=== PATIENT | male | born 1980 | race Caucasian/White ===

== ENCOUNTER 2020-05-17 16:06 | Emergency (ER) | payer OTHER ==
[~2020-05-17] VITALS: Ht 182.9 cm; Wt 98.1 kg
--- NOTE | 2020-05-17 18:03 | REPVR ---
PROCEDURE INFORMATION: Exam: CT Head Without Contrast Exam date and time: 05/17/2020 5:52 PM Age: 40 years old Clinical indication: Other: Tingling in neck/face TECHNIQUE: Imaging protocol: Computed tomography of the head without contrast. Radiation optimization: All CT scans at this facility use at least one of these dose optimization techniques: automated exposure control; mA and/or kV adjustment per patient size (includes targeted exams where dose is matched to clinical indication); or iterative reconstruction. COMPARISON: No relevant prior studies available. FINDINGS: Brain: Normal. No hemorrhage. Unremarkable white matter. No mass effect. Cerebral ventricles: No ventriculomegaly. Bones/joints: Unremarkable. No acute fracture. Paranasal sinuses: Visualized sinuses are unremarkable. No fluid levels. Mastoid air cells: Visualized mastoid air cells are well aerated. Soft tissues: Unremarkable. IMPRESSION: No acute intracranial abnormality. Electronically signed by: Jan Garcia On 05/17/2020 18:03:23 PM
[2020-05-17 18:18] LABS: BASO % 0.3 % (0.0-1.0); EOS % 0.1 % (0.0-3.0); HEMATOCRIT 48.1 % (42.0-52.0); LYMPH # 1.8 10^3/uL (1.5-5.0); LYMPH % 26.8 % (24.0-44.0); MEAN CORPUSCULAR HEMOGLOBIN 32.3 pg (27.0-33.0); MEAN CORPUSCULAR HGB CONC 33.3 g/dl (32.0-36.5); MEAN CORPUSCULAR VOLUME 97.2 fl (80.0-96.0); MONO # 0.5 10^3/uL (0.0-0.8); MONO % 6.7 % (0.0-5.0); NEUTROPHILS # 4.5 10^3/uL (1.5-8.5); NEUTROPHILS % 65.8 % (36.0-66.0); PLATELET COUNT, AUTOMATED 194 10^3/uL (150-450); RED BLOOD COUNT 4.95 10^6/uL (4.30-6.10); WHITE BLOOD COUNT 6.8 10^3/uL (4.0-10.0)
--- NOTE | 2020-05-17 18:23 | REP ---
INDICATION: CHEST PAIN. COMPARISON: No comparisons. TECHNIQUE: Two views.. FINDINGS: The lungs are well inflated and free of infiltrate. The pleural angles are sharp. The heart size is normal. Pulmonary vasculature is not increased. No significant bony abnormality is seen. IMPRESSION: Negative chest x-ray. <Electronically signed by Davey Jennings > 05/17/20 [id number]
[2020-05-17 18:54] LABS: ALBUMIN 4.3 GM/DL (3.2-5.2); ALT/SGPT 45 U/L (12-78); BILIRUBIN,DIRECT 0.2 MG/DL (0.0-0.2); BILIRUBIN,TOTAL 1.2 MG/DL (0.2-1.0); CK-MB VALUE MASS < 1.0 NG/ML (<3.6); CPK CREATINE PHOSPHOKINASE 90 U/L (39-308); FREE T4 0.97 NG/DL (0.76-1.46); LIPASE 62 U/L (73-393); MB/CK RELATIVE INDEX 1.11 (< OR =4); NT-PRO BNP 22 PG/ML (<125); TOTAL PROTEIN 8.4 GM/DL (6.4-8.2)
[2020-05-17 22:19] VITALS: BP 128/84
--- NOTE | 2020-05-18 09:29 | ECGEPIP ---
[facility] - ED Test Date: 2020-05-17 Pat Name: ELBERT CHANDRA Department: Room: - Gender: Male Net Maker: : 1980 Requested By: Cornel Du Order Number: [id number] Reading MD: Amy Franks Measurements Intervals [place] Rate: 66 P: 13 DC: 181 QRS: 4 QRSD: 105 T: 18 QT: 382 QTc: 402 Interpretive Statements SINUS RHYTHM POSSIBLE INFERIOR MYOCARDIAL INFARCTION, OF INDETERMINATE AGE No prior Electronically Signed on 05-18-2020 9:29:16 EDT by Amy Franks
== END 2020-05-17 22:28 | disposition home or self-care (01) ==
LOC: M ED 16:06
DX: R07.9 Chest pain, unspecified (principal); E78.5 Hyperlipidemia, unspecified; Z87.891 Personal history of nicotine dependence; Z91.013 Allergy to seafood

== ENCOUNTER → 2020-12-22 | Outpatient (CLI) | payer OTHER ==
--- NOTE | 2020-12-22 15:11 | REP ---
INDICATION: PAIN. COMPARISON: None. TECHNIQUE: Three views of the left shoulder were performed. FINDINGS: The acromioclavicular and glenohumeral relationships are within normal limits. There is no acute fracture or destructive osseous lesion. IMPRESSION: Within normal limits <Electronically signed by Fitz Marie > 12/22/20 [id number]
== END ==
LOC: M WUC 14:53
PROVIDERS: ATTEND Physician Assistant Medical
DX: M25.512 Pain in left shoulder (principal)

== ENCOUNTER → 2021-01-26 | Outpatient (CLI) | payer OTHER ==
--- NOTE | 2021-01-26 12:48 | REP ---
INDICATION: CHEST PAIN COMPARISON: 05/17/2020 TECHNIQUE: PA and lateral. FINDINGS: The mediastinum and cardiac silhouette are normal. The lung posadas are clear and without acute consolidation, effusion, or pneumothorax. The skeletal structures are intact and normal. IMPRESSION: No acute cardiopulmonary process. <Electronically signed by Robbi Irwin > 01/26/21 [id number]
== END ==
LOC: M WUC 12:00
PROVIDERS: ATTEND Physician Assistant Medical
DX: R07.9 Chest pain, unspecified (principal)

== ENCOUNTER → 2021-03-09 | Outpatient (REF) | payer OTHER | LOC: M SMT 12:59 | PROVIDERS: ATTEND Urology | DX: Z30.2 Encounter for sterilization (principal) ==

== ENCOUNTER → 2021-03-18 | Outpatient (CLI) | payer OTHER | LOC: M LABSMTC 11:23 | PROVIDERS: ATTEND Anesthesiology | DX: Z01.812 Encounter for preprocedural laboratory examination (principal); Z11.52 Encounter for screening for COVID-19 ==

== ENCOUNTER 2021-03-23 07:42 | Day surgery (SDC) | payer OTHER ==
[~2021-03-23] VITALS: Ht 182.9 cm; Wt 97.1 kg
[~2021-03-23 07:42] MED LIST: LIDOCAINE 2% 100MG/5ML SDV (FOR ANES.) As Ordered ONE; NS 1,000 ML IV ONE; propofoL 200 MG/20 ML VIAL As Ordered ONE
[2021-03-23] MEDS ORDERED: propofoL 200 MG/20 ML VIAL As Ordered ONE (08:49)
--- NOTE | 2021-03-23 09:06 | ROOR ---
Patient Name: Poncho Ly Procedure Date: 03/23/2021 8:42 AM Date of : 1980 Age: 40 Room: [facility] Gender: Male Note Status: Finalized Procedure: Upper GI endoscopy Indications: Suspected gastro-esophageal reflux disease Providers: DO Vincent Harris MD: EVIE Rodriguez Requesting Provider: Medicines: Propofol per Anesthesia Complications: No immediate complications. Procedure: Pre-Anesthesia Assessment: - Prior to the procedure, a History and Physical was performed, and patient medications and allergies were reviewed. The patient is competent. The risks and benefits of the procedure and the sedation options and risks were discussed with the patient. All questions were answered and informed consent was obtained. Patient identification and proposed procedure were verified by the physician, the nurse, the pipe line walker and the health information systems technician in the endoscopy suite. Mental Status Examination: alert and oriented. Airway Examination: normal oropharyngeal airway and neck mobility. Respiratory Examination: clear to auscultation. CV Examination: normal. Prophylactic Antibiotics: The patient does not require prophylactic antibiotics. Prior Anticoagulants: The patient has taken no previous anticoagulant or antiplatelet agents. ASA Grade Assessment: II - A patient with mild systemic disease. After reviewing the risks and benefits, the patient was deemed in satisfactory condition to undergo the procedure. The anesthesia plan was to use monitored anesthesia care (MAC). Immediately prior to administration of medications, the patient was re-assessed for adequacy to receive sedatives. The heart rate, respiratory rate, oxygen saturations, blood pressure, adequacy of pulmonary ventilation, and response to care were monitored throughout the procedure. The physical status of the patient was re-assessed after the procedure. The Endoscope was introduced through the mouth, and advanced to the second part of duodenum. The upper GI endoscopy was accomplished without difficulty. The patient tolerated the procedure well. Findings: Localized mild inflammation characterized by erythema, friability, linear erosions and target ulcerations was found in the prepyloric region of the stomach. Biopsies were taken with a cold forceps for Helicobacter pylori testing. Estimated blood loss was minimal. Impression: - Gastritis. Biopsied. Recommendation: - Patient has a contact number available for emergencies. The signs and symptoms of potential delayed complications were discussed with the patient. Return to normal activities tomorrow. Written discharge instructions were provided to the patient. - Return to physician obstetric assistant at appointment to be scheduled. Procedure Code(s): --- Professional --- 16273, Esophagogastroduodenoscopy, flexible, transoral; with biopsy, single or multiple Diagnosis Code(s): --- Professional --- K29.70, Gastritis, unspecified, without bleeding CPT copyright 2019 [employer]. All rights reserved. The codes documented in this report are preliminary and upon explosive man review may be revised to meet current compliance requirements. John Rangel DO 03/23/2021 9:05:48 AM Electronically signed by John Rangel DO Number of Addenda: 0 Note Initiated On: 03/23/2021 8:42 AM Estimated Blood Loss: Estimated blood loss was minimal.
--- NOTE | 2021-03-23 09:08 | ROOR ---
Patient Name: Poncho Ly Procedure Date: 03/23/2021 8:43 AM Date of : 1980 Age: 40 Room: [facility] Gender: Male Note Status: Finalized Procedure: Colonoscopy Indications: Screening for colorectal malignant neoplasm Providers: DO Vincent Harris MD: EVIE Rodriguez Requesting Provider: Medicines: Propofol per Anesthesia Complications: No immediate complications. Procedure: Pre-Anesthesia Assessment: - Prior to the procedure, a History and Physical was performed, and patient medications and allergies were reviewed. The patient is competent. The risks and benefits of the procedure and the sedation options and risks were discussed with the patient. All questions were answered and informed consent was obtained. Patient identification and proposed procedure were verified by the physician, the nurse, the lug breaker and wire puller and the property technician in the endoscopy suite. Mental Status Examination: alert and oriented. Airway Examination: normal oropharyngeal airway and neck mobility. Respiratory Examination: clear to auscultation. CV Examination: normal. Prophylactic Antibiotics: The patient does not require prophylactic antibiotics. Prior Anticoagulants: The patient has taken no previous anticoagulant or antiplatelet agents. ASA Grade Assessment: II - A patient with mild systemic disease. After reviewing the risks and benefits, the patient was deemed in satisfactory condition to undergo the procedure. The anesthesia plan was to use monitored anesthesia care (MAC). Immediately prior to administration of medications, the patient was re-assessed for adequacy to receive sedatives. The heart rate, respiratory rate, oxygen saturations, blood pressure, adequacy of pulmonary ventilation, and response to care were monitored throughout the procedure. The physical status of the patient was re-assessed after the procedure. The Colonoscope was introduced through the anus and advanced to the cecum, identified by appendiceal orifice and ileocecal valve. The colonoscopy was performed without difficulty. The patient tolerated the procedure well. Findings: The colon (entire examined portion) appeared normal. Impression: - The entire examined colon is normal. - No specimens collected. Recommendation: - Patient has a contact number available for emergencies. The signs and symptoms of potential delayed complications were discussed with the patient. Return to normal activities tomorrow. Written discharge instructions were provided to the patient. - Repeat colonoscopy in 5-10 years for screening purposes. - Return to my office PRN. Procedure Code(s): --- Professional --- G0121, Colorectal cancer screening; colonoscopy on individual not meeting criteria for high risk Diagnosis Code(s): --- Professional --- Z12.11, Encounter for screening for malignant neoplasm of colon CPT copyright 2019 [employer]. All rights reserved. The codes documented in this report are preliminary and upon outside sales manager review may be revised to meet current compliance requirements. John Rangel DO 03/23/2021 9:07:47 AM Electronically signed by John Rangel DO Number of Addenda: 0 Note Initiated On: 03/23/2021 8:43 AM Estimated Blood Loss: Estimated blood loss: none.
[2021-03-23 09:43] VITALS: BP 129/79
== END 2021-03-23 09:45 | disposition home or self-care (01) ==
LOC: M OPP 07:42
PROVIDERS: ATTEND Surgery
DX: Z12.11 Encounter for screening for malignant neoplasm of colon (principal); K29.70 Gastritis, unspecified, without bleeding; K21.9 Gastro-esophageal reflux disease without esophagitis; R10.9 Unspecified abdominal pain; F41.9 Anxiety disorder, unspecified; G43.909 Migraine, unspecified, not intractable, without status migrainosus; Z87.891 Personal history of nicotine dependence; Z91.013 Allergy to seafood; Z82.49 Family history of ischemic heart disease and other diseases of the circulatory system

== ENCOUNTER → 2021-06-10 | Outpatient (REF) | payer OTHER ==
[2021-06-10 09:55] LABS: SEMEN APPEARANCE OPAQUE (OPAQUE); SEMEN VISCOSITY LIQUID (LIQUID); SEMEN VOLUME 2.1 ml (2.0-5.0); WBC CONCENTRATION >1 M/ml (<=1 M/ml)
== END ==
LOC: M SMT 09:28
PROVIDERS: ATTEND Urology
DX: Z30.2 Encounter for sterilization (principal)

== ENCOUNTER 2023-03-19 15:30 | Inpatient (IN) | payer OTHER, SELFPAY ==
[~2023-03-19] VITALS: Ht 182.9 cm; Wt 80.0 kg
[2023-03-19] MEDS ORDERED: BACITRACIN OINTMENT 30GM TUBE TOP ONE (16:05)
[2023-03-19] MEDS ORDERED: ASPIRIN 81MG CHEW TABLET PO ONE (16:50)
[2023-03-19 17:04] LABS: BASO % 0.7 % (0.0-1.0); EOS % 0.3 % (0.0-3.0); HEMATOCRIT 43.2 % (42.0-52.0); LYMPH # 0.4 10^3/uL (1.5-5.0); MEAN CORPUSCULAR HEMOGLOBIN 34.8 pg (27.0-33.0); MEAN CORPUSCULAR HGB CONC 34.7 g/dl (32.0-36.5); MEAN CORPUSCULAR VOLUME 100.2 fl (80.0-96.0); MONO # 0.2 10^3/uL (0.0-0.8); MONO % 8.2 % (2.0-8.0); NEUTROPHILS # 2.2 10^3/uL (1.5-8.5); NEUTROPHILS % 75.5 % (36.0-66.0); RED BLOOD COUNT 4.31 10^6/uL (4.30-6.10); WHITE BLOOD COUNT 2.9 10^3/uL (4.0-10.0)
[2023-03-19] MEDS: NS 1,000 ML IV SCH (17:04)
[2023-03-19 17:24] LABS: ACETAMINOPHEN LEVEL < 2.0 UG/ML (10.0-20.0); CK-MB VALUE MASS 1.9 NG/ML (<3.6); ETHYL ALCOHOL (ETHANOL) 0.008 % (0.000-0.010)
[2023-03-19 17:25] LABS: ALBUMIN 3.9 G/DL (3.2-5.2); ALKALINE PHOSPHATASE 66 U/L (46-116); ALT/SGPT 91 U/L (7.0-40); AST/SGOT 161 U/L (<34); BILIRUBIN,DIRECT 0.7 MG/DL (<0.4); BILIRUBIN,TOTAL 1.8 MG/DL (0.3-1.2); BLOOD UREA NITROGEN 9 MG/DL (9-23); CALCIUM LEVEL 9.9 MG/DL (8.5-10.1); CARBON DIOXIDE LEVEL 24 MMOL/L (20-31); CHLORIDE LEVEL 101 MMOL/L (98-107); CPK CREATINE PHOSPHOKINASE 149 U/L (46-171); CREATININE FOR GFR 0.78 MG/DL (0.70-1.30); GLOMERULAR FILTRATION RATE > 60.0 (>60); GLUCOSE, FASTING 105 MG/DL (60-100); MB/CK RELATIVE INDEX 1.27 (< OR =4); POTASSIUM SERUM 3.9 MMOL/L (3.5-5.1); SALICYLATE LEVEL < 3.0 MG/DL (<30); SODIUM LEVEL 136 MMOL/L (136-145); TOTAL PROTEIN 7.4 G/DL (5.7-8.2)
[2023-03-19 17:27] LABS: THYROID STIMULATING HORMONE 1.553 uIU/ML (0.55-4.78)
[2023-03-19 17:33] LABS: PLATELET COUNT, AUTOMATED 46 10^3/uL (150-450)
[2023-03-19 18:01] LABS: AMPHETAMINES LEVEL URINE NEGATIVE (NEGATIVE)
[2023-03-19 18:02] LABS: BARBITURATES URINE NEGATIVE (NEGATIVE); BENZODIAZEPINES URINE NEGATIVE (NEGATIVE); CANNABINOIDS URINE NEGATIVE (NEGATIVE); COCAINE METABOLITE URINE NEGATIVE (NEGATIVE); METHADONE URINE NEGATIVE (NEGATIVE); OPIATES URINE NEGATIVE (NEGATIVE); PHENCYCLIDINE URINE NEGATIVE (NEGATIVE)
[2023-03-19] MEDS ORDERED: ONDANSETRON 4MG 2ML VIAL IV ONE (18:05)
[2023-03-19] MEDS ORDERED: MORPHINE 2 MG/ML 1ML VIAL IV ONE (18:05)
[2023-03-19 18:55] LABS: INR 1.04; PROTHROMBIN TIME 13.3 SECONDS (12.5-14.5)
[2023-03-19] MEDS ORDERED: MED REC IN PROGRESS XX SCH (18:55)
[2023-03-19 18:56] LABS: CK-MB VALUE MASS 2.3 NG/ML (<3.6)
[2023-03-19] MEDS ORDERED: EXCETAB32 PO (18:56)
[2023-03-19] MEDS ORDERED: ATOR1TAB19 PO (18:56)
[2023-03-19 18:57] LABS: MB/CK RELATIVE INDEX 1.33 (< OR =4)
[2023-03-19] MEDS ORDERED: HOME MED LIST COMPLETE! XX SCH (19:05)
[2023-03-19 19:06] LABS: MONO SCRN NEGATIVE (NEGATIVE)
[2023-03-19 19:36] LABS: HEPATITIS B CORE ANTIBODY IGM NEGATIVE (NEGATIVE); HEPATITIS C VIRUS ABY INDEX 0.14 INDEX (<0.8)
[2023-03-19 19:39] LABS: RSV AMPLIFICATION NEGATIVE (NEGATIVE)
[2023-03-19 20:40] LABS: CK-MB VALUE MASS 3.9 NG/ML (<3.6)
[2023-03-19 20:43] LABS: MB/CK RELATIVE INDEX 1.65 (< OR =4)
[2023-03-19] MEDS ORDERED: LORazepam 2 MG/ML 1ML VIAL IV STA (21:18)
[2023-03-19] MEDS ORDERED: NS 1,000 ML IV ONE (21:20)
[2023-03-19] MEDS ORDERED: THIAMINE 200MG 2ML VIAL IM ONE (22:10)
[2023-03-19] MEDS ORDERED: ACETAMINOPHEN TAB 650MG DOSE (2X325MG) PO PRN (22:10)
[2023-03-19 22:45] VITALS: BP 119/76; TEMP 98.2; O2SAT 99
[2023-03-19 23:19] VITALS: BP 119/76
[2023-03-20] VITALS (43 sets, daily range): BP systolic 85–148; BP diastolic 56–88; TEMP 97.5–99.1; O2SAT 86–100
[2023-03-20] MEDS ORDERED: CEPACOL LOZENGE PO PRN (00:15)
[2023-03-20] MEDS: NS 1,000 ML IV SCH ×2 (02:05→12:05)
[2023-03-20 06:22] LABS: MEAN CORPUSCULAR HEMOGLOBIN 34.7 pg (27.0-33.0); MEAN CORPUSCULAR HGB CONC 33.5 g/dl (32.0-36.5); MEAN CORPUSCULAR VOLUME 103.6 fl (80.0-96.0); RED BLOOD COUNT 3.57 10^6/uL (4.30-6.10); WHITE BLOOD COUNT 3.6 10^3/uL (4.0-10.0)
[2023-03-20 06:23] LABS: PLATELET COUNT, AUTOMATED 39 10^3/uL (150-450)
[2023-03-20 06:24] LABS: HEMOGLOBIN 12.4 g/dl (13.5-17.5)
[2023-03-20 06:51] LABS: ALBUMIN 3.1 G/DL (3.2-5.2); ALKALINE PHOSPHATASE 53 U/L (46-116); ALT/SGPT 65 U/L (7.0-40); AST/SGOT 114 U/L (<34); BILIRUBIN,TOTAL 1.9 MG/DL (0.3-1.2); BLOOD UREA NITROGEN 7 MG/DL (9-23); CALCIUM LEVEL 8.3 MG/DL (8.5-10.1); CARBON DIOXIDE LEVEL 25 MMOL/L (20-31); CHLORIDE LEVEL 103 MMOL/L (98-107); GLOMERULAR FILTRATION RATE > 60.0 (>60); GLUCOSE, FASTING 65 MG/DL (60-100); POTASSIUM SERUM 4.1 MMOL/L (3.5-5.1); SODIUM LEVEL 137 MMOL/L (136-145); TOTAL PROTEIN 5.9 G/DL (5.7-8.2)
[2023-03-20] MEDS: LORazepam 2 MG TAB PO PRN ×3 (08:30→12:22)
[2023-03-20] MEDS ORDERED: THIAMINE 100 MG TAB PO SCH (09:00)
[2023-03-20] MEDS ORDERED: FOLIC ACID 1MG TAB PO SCH (09:00)
[2023-03-20] MEDS ORDERED: MULTIVITAMINS/MINERALS THERAP 1 TAB PO SCH (09:00)
[2023-03-20] MEDS ORDERED: VITMTA PO (11:27)
[2023-03-20] MEDS ORDERED: FOLI1TAB11 PO (11:27)
[2023-03-20] MEDS ORDERED: THIA100TA PO (11:27)
[2023-03-20] MEDS: LORazepam 2 MG/ML 1ML VIAL IV PRN ×2 (13:18→13:55)
[2023-03-20] MEDS ORDERED: LORazepam 2 MG/ML 1ML VIAL IV STA (14:33)
[2023-03-20] MEDS ORDERED: LORazepam 2 MG/ML 1ML VIAL As Ordered ONE (14:35)
[2023-03-20] MEDS ORDERED: diazePAM 10MG/2ML SYRINGE IV STA (14:41)
[2023-03-20] MEDS ORDERED: diazePAM 10MG/2ML SYRINGE As Ordered ONE (14:42)
[2023-03-20] MEDS ORDERED: HALOPERIDOL 5MG/ML 1ML VIAL IM STA ×2 (14:49→14:50)
[2023-03-20] MEDS ORDERED: dexmedeTOMIDine (4MCG/ML)200MCG/50ML BTL (PRECEDEX) As Ordered ONE (14:49)
[2023-03-20] MEDS ORDERED: HALOPERIDOL 5MG/ML 1ML VIAL As Ordered ONE (14:50)
[2023-03-20] MEDS ORDERED: MIDAZOLAM INJ 2MG/2ML VIAL As Ordered ONE ×4 (15:06→15:11)
[2023-03-20] MEDS ORDERED: fentaNYL 100 MCG/2 ML INJECTION As Ordered ONE (15:06)
[2023-03-20] MEDS ORDERED: MIDAZOLAM INJ 2MG/2ML VIAL IV STA ×2 (15:08→15:16)
[2023-03-20] MEDS ORDERED: fentaNYL 100 MCG/2 ML INJECTION IV STA (15:16)
[2023-03-20] MEDS ORDERED: ETOMIDATE INJ 20MG/10ML VIAL IV STA ×2 (15:16→17:10)
[2023-03-20] MEDS ORDERED: ROCURONIUM BROMIDE 50MG/5ML VIAL IV STA ×2 (15:17→17:10)
[2023-03-20] MEDS ORDERED: MIDAZOLAM 100MG/100ML-0.9%NACL 100 MG in IV 1 EA IV SCH (15:20)
[2023-03-20] MEDS: MIDAZOLAM 100MG/100ML-0.9%NACL 100 MG in IV 1 EA IV SCH (15:23)
[2023-03-20] MEDS ORDERED: DEXMEDETOMIDINE IV ONE (16:00)
[2023-03-20] MEDS ORDERED: D5W/LR 1,000 ML IV SCH (16:10)
[2023-03-20] MEDS ORDERED: ROCURONIUM BROMIDE 50MG/5ML VIAL As Ordered ONE (16:58)
[2023-03-20] MEDS ORDERED: ETOMIDATE INJ 20MG/10ML VIAL As Ordered ONE (16:58)
[2023-03-20] MEDS ORDERED: PROPOFOL 1,000 MG/100 ML VIAL As Ordered ONE (17:04)
[2023-03-20 17:31] LABS: ABG BASE EXCESS -3.9 (-2.0-2.0); ABG HCO3 20.3 MMOL/L (22.0-26.0); ABG O2 SATURATION 99.6 % (95.0-99.0); ABG PARTIAL PRESSURE CO2 34.1 mmHg (35.0-45.0); ABG STANDARD HCO3 21.3 MMOL/L. (22.0-26.0); ABG TOTAL CO2 21.3 MMOL/L (22.0-29.0); ABG pH (ARTERIAL) 7.392 UNITS (7.350-7.450)
[2023-03-20 17:41] LABS: ALBUMIN 3.3 G/DL (3.2-5.2); ALKALINE PHOSPHATASE 53 U/L (46-116); ALT/SGPT 63 U/L (7.0-40); AST/SGOT 108 U/L (<34); BILIRUBIN,TOTAL 2.1 MG/DL (0.3-1.2); BLOOD UREA NITROGEN 8 MG/DL (9-23); CALCIUM LEVEL 8.6 MG/DL (8.5-10.1); CARBON DIOXIDE LEVEL 24 MMOL/L (20-31); CHLORIDE LEVEL 104 MMOL/L (98-107); CREATININE FOR GFR 0.62 MG/DL (0.70-1.30); GLOMERULAR FILTRATION RATE > 60.0 (>60); GLUCOSE, FASTING 92 MG/DL (60-100); MAGNESIUM LEVEL 1.4 MG/DL (1.8-2.4); PHOSPHORUS LEVEL 3.8 MG/DL (2.5-4.9); POTASSIUM SERUM 3.6 MMOL/L (3.5-5.1); SODIUM LEVEL 136 MMOL/L (136-145); TOTAL PROTEIN 6.3 G/DL (5.7-8.2)
[2023-03-20] MEDS: D5W/0.9% SODIUM CHLORIDE 1,000 ML IV SCH (18:45)
[2023-03-20] MEDS: PANTOPRAZOLE 40MG VIAL IV SCH (18:46)
[2023-03-20] MEDS: propofoL 1,000 MG in IV 1 EA IV SCH ×2 (18:47→23:59)
[2023-03-20] MEDS ORDERED: NS 1,000 ML IV ONE (19:15)
[2023-03-20] MEDS ORDERED: THIAMINE 200MG 2ML VIAL IM ONE (19:20)
[2023-03-20] MEDS: CHLORHEXIDINE GLUCONATE 0.12 % 15ML UDC (PERIDEX ORAL RINSE) MT SCH (20:20)
[2023-03-20] MEDS: MIDAZOLAM INJ 2MG/2ML VIAL IV PRN ×2 (21:09→21:45)
[2023-03-20] MEDS: MAG SULF 1GM/100ML (MAG RUN) 1 GM in IV 1 EA IV SCH ×3 (21:37→23:57)
[2023-03-20 22:30] LABS: BASO % 0.3 % (0.0-1.0); EOS % 1.3 % (0.0-3.0); HEMATOCRIT 38.6 % (42.0-52.0); HEMOGLOBIN 13.2 g/dl (13.5-17.5); LYMPH # 0.8 10^3/uL (1.5-5.0); LYMPH % 27.6 % (24.0-44.0); MEAN CORPUSCULAR HEMOGLOBIN 34.9 pg (27.0-33.0); MEAN CORPUSCULAR HGB CONC 34.2 g/dl (32.0-36.5); MEAN CORPUSCULAR VOLUME 102.1 fl (80.0-96.0); MONO # 0.2 10^3/uL (0.0-0.8); MONO % 7.4 % (2.0-8.0); NEUTROPHILS # 1.9 10^3/uL (1.5-8.5); NEUTROPHILS % 63.4 % (36.0-66.0); RED BLOOD COUNT 3.78 10^6/uL (4.30-6.10)
[2023-03-20 22:31] LABS: PLATELET COUNT, AUTOMATED 36 10^3/uL (150-450)
[2023-03-20 22:52] LABS: ALBUMIN 3.3 G/DL (3.2-5.2); ALKALINE PHOSPHATASE 52 U/L (46-116); ALT/SGPT 59 U/L (7.0-40); AST/SGOT 101 U/L (<34); BILIRUBIN,TOTAL 2.3 MG/DL (0.3-1.2); BLOOD UREA NITROGEN 9 MG/DL (9-23); CALCIUM LEVEL 8.7 MG/DL (8.5-10.1); CARBON DIOXIDE LEVEL 25 MMOL/L (20-31); CHLORIDE LEVEL 104 MMOL/L (98-107); CREATININE FOR GFR 0.64 MG/DL (0.70-1.30); GLOMERULAR FILTRATION RATE > 60.0 (>60); GLUCOSE, FASTING 72 MG/DL (60-100); MAGNESIUM LEVEL 1.6 MG/DL (1.8-2.4); POTASSIUM SERUM 3.5 MMOL/L (3.5-5.1); SODIUM LEVEL 139 MMOL/L (136-145); TOTAL PROTEIN 6.1 G/DL (5.7-8.2)
[2023-03-21] VITALS (54 sets, daily range): BP systolic 103–142; BP diastolic 66–89; TEMP 97.5–101.7; O2SAT 94–100
[2023-03-21] MEDS ORDERED: ACETAMINOPHEN *IV* 1,000 MG in IV 1 EA IV ONE (00:15)
[2023-03-21] MEDS: MIDAZOLAM INJ 2MG/2ML VIAL IV PRN ×7 (00:56→20:42)
[2023-03-21 05:03] LABS: BASO % 0.2 % (0.0-1.0); EOS # 0.1 10^3/uL (0.0-0.5); EOS % 1.2 % (0.0-3.0); HEMATOCRIT 39.2 % (42.0-52.0); HEMOGLOBIN 13.4 g/dl (13.5-17.5); LYMPH # 0.9 10^3/uL (1.5-5.0); LYMPH % 22.1 % (24.0-44.0); MEAN CORPUSCULAR HEMOGLOBIN 34.8 pg (27.0-33.0); MEAN CORPUSCULAR HGB CONC 34.2 g/dl (32.0-36.5); MEAN CORPUSCULAR VOLUME 101.8 fl (80.0-96.0); MONO # 0.4 10^3/uL (0.0-0.8); MONO % 8.8 % (2.0-8.0); NEUTROPHILS # 2.8 10^3/uL (1.5-8.5); NEUTROPHILS % 67.2 % (36.0-66.0); RED BLOOD COUNT 3.85 10^6/uL (4.30-6.10); WHITE BLOOD COUNT 4.2 10^3/uL (4.0-10.0)
[2023-03-21 05:05] LABS: PLATELET COUNT, AUTOMATED 43 10^3/uL (150-450)
[2023-03-21] MEDS: propofoL 1,000 MG in IV 1 EA IV SCH ×5 (05:21→21:36)
[2023-03-21] MEDS: MIDAZOLAM 100MG/100ML-0.9%NACL 100 MG in IV 1 EA IV SCH (06:06)
[2023-03-21 06:31] LABS: BLOOD UREA NITROGEN 7 MG/DL (9-23); CALCIUM LEVEL 8.1 MG/DL (8.5-10.1); CARBON DIOXIDE LEVEL 23 MMOL/L (20-31); CHLORIDE LEVEL 104 MMOL/L (98-107); CREATININE FOR GFR 0.66 MG/DL (0.70-1.30); GLOMERULAR FILTRATION RATE > 60.0 (>60); GLUCOSE, FASTING 83 MG/DL (60-100); SODIUM LEVEL 139 MMOL/L (136-145)
[2023-03-21] MEDS ORDERED: ENOXAPARIN 40MG/0.4ML SYRINGE (J1650 PER 10MG) SC SCH (09:00)
[2023-03-21] MEDS: D5W/0.9% SODIUM CHLORIDE 1,000 ML IV SCH (09:02)
[2023-03-21] MEDS: CHLORHEXIDINE GLUCONATE 0.12 % 15ML UDC (PERIDEX ORAL RINSE) MT SCH ×2 (09:03→20:01)
[2023-03-21] MEDS: THIAMINE 200MG 2ML VIAL IM SCH (09:03)
[2023-03-21] MEDS: PANTOPRAZOLE 40MG VIAL IV SCH (09:03)
[2023-03-21] MEDS: POTASSIUM CHLORIDE 10% LIQ 20MEQ/15ML UDC XX SCH ×2 (10:11→16:13)
[2023-03-21] MEDS: KCL 10MEQ/100ML SWI (KRUN) 10 MEQ in IV 1 EA IV SCH ×2 (10:12→11:58)
[2023-03-21 10:29] LABS: ALBUMIN 3.1 G/DL (3.2-5.2); ALKALINE PHOSPHATASE 52 U/L (46-116); ALT/SGPT 60 U/L (7.0-40); AST/SGOT 105 U/L (<34); BILIRUBIN,DIRECT 0.7 MG/DL (<0.4); BILIRUBIN,TOTAL 1.8 MG/DL (0.3-1.2); TOTAL PROTEIN 5.9 G/DL (5.7-8.2)
[2023-03-21 12:31] LABS: VENOUS BASE EXCESS -0.9 (-2.0-2.0); VENOUS HCO3 23.7 MMOL/L (23.0-27.0); VENOUS O2 SATURATION 96.2 % (60.0-80.0); VENOUS PARTIAL PRESSURE CO2 39.4 mmHg (38.0-50.0); VENOUS PARTIAL PRESSURE O2 80.4 mmHg (30.0-50.0); VENOUS PH 7.398 UNITS (7.330-7.430); VENOUS STANDARD HCO3 23.7 MMOL/L
[2023-03-21] MEDS: FOLIC ACID 1MG TAB PO SCH (16:12)
[2023-03-21] MEDS: ACETAMINOPHEN TAB 650MG DOSE (2X325MG) PO PRN (20:48)
[2023-03-21] MEDS: LACRILUBE (AKWA TEARS) OPHTH OINT 3.5GM OU SCH (20:48)
[2023-03-22] VITALS (52 sets, daily range): BP systolic 103–130; BP diastolic 66–97; TEMP 97.9–103.5; O2SAT 97–100
[2023-03-22] MEDS: propofoL 1,000 MG in IV 1 EA IV SCH ×6 (01:30→22:30)
[2023-03-22] MEDS: MIDAZOLAM 100MG/100ML-0.9%NACL 100 MG in IV 1 EA IV SCH (01:31)
[2023-03-22] MEDS: MIDAZOLAM INJ 2MG/2ML VIAL IV PRN ×7 (02:37→21:11)
[2023-03-22 04:45] LABS: BASO % 0.3 % (0.0-1.0); EOS # 0.1 10^3/uL (0.0-0.5); EOS % 1.5 % (0.0-3.0); HEMATOCRIT 38.1 % (42.0-52.0); HEMOGLOBIN 12.8 g/dl (13.5-17.5); LYMPH # 0.9 10^3/uL (1.5-5.0); LYMPH % 21.8 % (24.0-44.0); MEAN CORPUSCULAR HEMOGLOBIN 34.7 pg (27.0-33.0); MEAN CORPUSCULAR HGB CONC 33.6 g/dl (32.0-36.5); MEAN CORPUSCULAR VOLUME 103.3 fl (80.0-96.0); MONO # 0.4 10^3/uL (0.0-0.8); MONO % 10.2 % (2.0-8.0); NEUTROPHILS # 2.6 10^3/uL (1.5-8.5); NEUTROPHILS % 65.4 % (36.0-66.0); RED BLOOD COUNT 3.69 10^6/uL (4.30-6.10); WHITE BLOOD COUNT 3.9 10^3/uL (4.0-10.0)
[2023-03-22 04:50] LABS: PLATELET COUNT, AUTOMATED 51 10^3/uL (150-450)
[2023-03-22 04:59] LABS: ALBUMIN 2.7 G/DL (3.2-5.2); ALKALINE PHOSPHATASE 54 U/L (46-116); ALT/SGPT 50 U/L (7.0-40); AST/SGOT 66 U/L (<34); BILIRUBIN,DIRECT 0.5 MG/DL (<0.4); BILIRUBIN,TOTAL 1.2 MG/DL (0.3-1.2); BLOOD UREA NITROGEN < 5 MG/DL (9-23); CALCIUM LEVEL 8.3 MG/DL (8.5-10.1); CARBON DIOXIDE LEVEL 26 MMOL/L (20-31); CHLORIDE LEVEL 108 MMOL/L (98-107); CREATININE FOR GFR 0.73 MG/DL (0.70-1.30); GLOMERULAR FILTRATION RATE > 60.0 (>60); GLUCOSE, FASTING 85 MG/DL (60-100); POTASSIUM SERUM 3.4 MMOL/L (3.5-5.1); SODIUM LEVEL 142 MMOL/L (136-145); TOTAL PROTEIN 5.7 G/DL (5.7-8.2)
[2023-03-22] MEDS ORDERED: KCL 10MEQ/100ML SWI (KRUN) 10 MEQ in IV 1 EA IV ONE (06:30)
[2023-03-22] MEDS: LACRILUBE (AKWA TEARS) OPHTH OINT 3.5GM OU SCH ×2 (09:00→20:04)
[2023-03-22] MEDS: CHLORHEXIDINE GLUCONATE 0.12 % 15ML UDC (PERIDEX ORAL RINSE) MT SCH ×2 (09:01→20:04)
[2023-03-22] MEDS: FOLIC ACID 1MG TAB PO SCH (09:02)
[2023-03-22] MEDS: THIAMINE 200MG 2ML VIAL IM SCH (09:02)
[2023-03-22] MEDS: PANTOPRAZOLE 40MG VIAL IV SCH (09:02)
[2023-03-22] MEDS ORDERED: ACETAMINOPHEN *IV* 1,000 MG in IV 1 EA IV ONE (20:10)
[2023-03-22] MEDS ORDERED: SODIUM CHLORIDE 0.9% 1000ML IV ONE (20:10)
[2023-03-22] MEDS: dexmedeTOMidine 200 MCG in IV 1 EA IV PRN (20:17)
[2023-03-22] MEDS ORDERED: VANCOMYCIN HCL 1,000 MG, VIAL MATE ADAPTER 1 EACH in D5W 250 ML IV SCH (20:20)
[2023-03-22] MEDS: PIPERACILLIN/TAZOBACTAM SOD 4.5 GM in D5W MINI-BAG PLUS 50 ML IV SCH (21:06)
[2023-03-22 21:09] LABS: BASO % 0.6 % (0.0-1.0); EOS % 0.8 % (0.0-3.0); HEMATOCRIT 41.2 % (42.0-52.0); HEMOGLOBIN 13.5 g/dl (13.5-17.5); LYMPH # 0.6 10^3/uL (1.5-5.0); LYMPH % 15.8 % (24.0-44.0); MEAN CORPUSCULAR HEMOGLOBIN 34.5 pg (27.0-33.0); MEAN CORPUSCULAR HGB CONC 32.8 g/dl (32.0-36.5); MEAN CORPUSCULAR VOLUME 105.4 fl (80.0-96.0); MONO # 0.5 10^3/uL (0.0-0.8); MONO % 13.3 % (2.0-8.0); NEUTROPHILS # 2.4 10^3/uL (1.5-8.5); NEUTROPHILS % 68.7 % (36.0-66.0); RED BLOOD COUNT 3.91 10^6/uL (4.30-6.10); WHITE BLOOD COUNT 3.5 10^3/uL (4.0-10.0)
[2023-03-22 21:13] LABS: PLATELET COUNT, AUTOMATED 58 10^3/uL (150-450)
[2023-03-22 21:24] LABS: PROCALCITONIN 0.08 ng/ml
[2023-03-22 21:43] LABS: ALBUMIN 2.9 G/DL (3.2-5.2); ALKALINE PHOSPHATASE 53 U/L (46-116); ALT/SGPT 51 U/L (7.0-40); AST/SGOT 75 U/L (<34); BILIRUBIN,TOTAL 1.1 MG/DL (0.3-1.2); BLOOD UREA NITROGEN < 5 MG/DL (9-23); CALCIUM LEVEL 8.4 MG/DL (8.5-10.1); CARBON DIOXIDE LEVEL 17 MMOL/L (20-31); CHLORIDE LEVEL 107 MMOL/L (98-107); CREATININE FOR GFR 0.58 MG/DL (0.70-1.30); GLOMERULAR FILTRATION RATE > 60.0 (>60); GLUCOSE, FASTING 108 MG/DL (60-100); POTASSIUM SERUM 4.7 MMOL/L (3.5-5.1); SODIUM LEVEL 137 MMOL/L (136-145); TOTAL PROTEIN 5.8 G/DL (5.7-8.2)
[2023-03-22] MEDS ORDERED: VANCOMYCIN HCL 1,000 MG, VIAL MATE ADAPTER 1 EACH in D5W 250 ML IV ONE ×2 (22:00→23:00)
[2023-03-23] VITALS (43 sets, daily range): BP systolic 96–134; BP diastolic 62–97; TEMP 98–100; O2SAT 92–100
[2023-03-23] MEDS: MIDAZOLAM INJ 2MG/2ML VIAL IV PRN ×8 (01:35→09:00)
[2023-03-23] MEDS: propofoL 1,000 MG in IV 1 EA IV SCH ×2 (02:14→06:00)
[2023-03-23] MEDS: dexmedeTOMidine 200 MCG in IV 1 EA IV PRN (02:14)
[2023-03-23] MEDS: PIPERACILLIN/TAZOBACTAM SOD 4.5 GM in D5W MINI-BAG PLUS 50 ML IV SCH ×4 (02:16→20:18)
[2023-03-23 04:57] LABS: BASO % 0.5 % (0.0-1.0); EOS # 0.1 10^3/uL (0.0-0.5); EOS % 1.6 % (0.0-3.0); HEMATOCRIT 38.1 % (42.0-52.0); HEMOGLOBIN 12.7 g/dl (13.5-17.5); LYMPH # 0.7 10^3/uL (1.5-5.0); LYMPH % 17.7 % (24.0-44.0); MEAN CORPUSCULAR HGB CONC 33.3 g/dl (32.0-36.5); MEAN CORPUSCULAR VOLUME 102.1 fl (80.0-96.0); MONO # 0.6 10^3/uL (0.0-0.8); MONO % 15.8 % (2.0-8.0); NEUTROPHILS # 2.3 10^3/uL (1.5-8.5); NEUTROPHILS % 63.6 % (36.0-66.0); RED BLOOD COUNT 3.73 10^6/uL (4.30-6.10); WHITE BLOOD COUNT 3.7 10^3/uL (4.0-10.0)
[2023-03-23 05:00] LABS: PLATELET COUNT, AUTOMATED 63 10^3/uL (150-450)
[2023-03-23 05:34] LABS: BLOOD UREA NITROGEN < 5 MG/DL (9-23); CALCIUM LEVEL 8.2 MG/DL (8.5-10.1); CARBON DIOXIDE LEVEL 23 MMOL/L (20-31); CHLORIDE LEVEL 108 MMOL/L (98-107); CREATININE FOR GFR 0.57 MG/DL (0.70-1.30); GLOMERULAR FILTRATION RATE > 60.0 (>60); GLUCOSE, FASTING 128 MG/DL (60-100); POTASSIUM SERUM 3.5 MMOL/L (3.5-5.1); SODIUM LEVEL 140 MMOL/L (136-145)
[2023-03-23 05:44] LABS: ABG BASE EXCESS -0.5 (-2.0-2.0); ABG HCO3 22.8 MMOL/L (22.0-26.0); ABG O2 SATURATION 97.9 % (95.0-99.0); ABG PARTIAL PRESSURE CO2 33.5 mmHg (35.0-45.0); ABG PARTIAL PRESSURE O2 96.7 mmHg (75.0-100.0); ABG STANDARD HCO3 24.1 MMOL/L. (22.0-26.0); ABG TOTAL CO2 23.8 MMOL/L (22.0-29.0); ABG pH (ARTERIAL) 7.451 UNITS (7.350-7.450)
[2023-03-23] MEDS ORDERED: VANCOMYCIN HCL 750 MG, VIAL MATE ADAPTER 1 EACH in D5W 250 ML IV SCH (06:00)
[2023-03-23] MEDS ORDERED: VANCOMYCIN HCL 500 MG in D5W MINI-BAG PLUS 100 ML IV SCH (07:00)
[2023-03-23] MEDS: PANTOPRAZOLE 40MG VIAL IV SCH (08:31)
[2023-03-23] MEDS: FOLIC ACID 1MG TAB PO SCH (08:31)
[2023-03-23] MEDS: CHLORHEXIDINE GLUCONATE 0.12 % 15ML UDC (PERIDEX ORAL RINSE) MT SCH ×2 (08:31→20:18)
[2023-03-23] MEDS: THIAMINE 200MG 2ML VIAL IM SCH (08:31)
[2023-03-23] MEDS: LACRILUBE (AKWA TEARS) OPHTH OINT 3.5GM OU SCH ×2 (08:32→20:18)
[2023-03-23] MEDS ORDERED: LORazepam 2 MG/ML 1ML VIAL IV PRN ×2 (10:05→13:00)
[2023-03-23] MEDS ORDERED: dexmedeTOMIDine (4MCG/ML)200MCG/50ML BTL (PRECEDEX) As Ordered ONE (10:57)
[2023-03-23] MEDS ORDERED: HALOPERIDOL 5MG/ML 1ML VIAL IV PRN (11:05)
[2023-03-23] MEDS ORDERED: HALOPERIDOL 5MG/ML 1ML VIAL As Ordered ONE ×2 (11:09→16:54)
[2023-03-23] MEDS ORDERED: diphenhydrAMINE 50MG/ML VIAL As Ordered ONE (11:09)
[2023-03-23] MEDS: diphenhydrAMINE 50MG/ML VIAL IM PRN ×2 (11:13→16:51)
[2023-03-23] MEDS ORDERED: LORazepam 2 MG/ML 1ML VIAL IV STA (11:23)
[2023-03-23] MEDS: dexmedeTOMidine 200 MCG in IV 1 EA IV SCH ×5 (12:52→22:32)
[2023-03-23] MEDS ORDERED: VANCOMYCIN HCL 1,000 MG, VIAL MATE ADAPTER 1 EACH in D5W 250 ML IV SCH (15:00)
[2023-03-23] MEDS: VANCOMYCIN HCL 1,000 MG, VIAL MATE ADAPTER 1 EACH in D5W 250 ML IV SCH ×2 (15:55→22:32)
[2023-03-23] MEDS ORDERED: OLANZapine INTRAMUSCULAR 10MG VIAL IM ONE (17:15)
[2023-03-23] MEDS ORDERED: OLANZapine INTRAMUSCULAR 10MG VIAL IM PRN (17:30)
[2023-03-23] MEDS ORDERED: fentaNYL 100 MCG/2 ML INJECTION IV ONE (17:30)
[2023-03-23] MEDS ORDERED: HALOPERIDOL 5MG/ML 1ML VIAL IM SCH ×2 (21:00)
[2023-03-24] VITALS (23 sets, daily range): BP systolic 120–146; BP diastolic 76–102; TEMP 97.9–100; O2SAT 88–98
[2023-03-24] MEDS: dexmedeTOMidine 200 MCG in IV 1 EA IV SCH ×14 (00:35→22:35)
[2023-03-24] MEDS: PIPERACILLIN/TAZOBACTAM SOD 4.5 GM in D5W MINI-BAG PLUS 50 ML IV SCH ×4 (02:57→20:05)
[2023-03-24 05:25] LABS: BASO % 0.6 % (0.0-1.0); EOS # 0.1 10^3/uL (0.0-0.5); EOS % 2.1 % (0.0-3.0); HEMATOCRIT 37.2 % (42.0-52.0); HEMOGLOBIN 12.8 g/dl (13.5-17.5); LYMPH # 0.7 10^3/uL (1.5-5.0); LYMPH % 15.4 % (24.0-44.0); MEAN CORPUSCULAR HEMOGLOBIN 34.7 pg (27.0-33.0); MEAN CORPUSCULAR HGB CONC 34.4 g/dl (32.0-36.5); MEAN CORPUSCULAR VOLUME 100.8 fl (80.0-96.0); MONO # 0.7 10^3/uL (0.0-0.8); MONO % 14.5 % (2.0-8.0); NEUTROPHILS # 3.2 10^3/uL (1.5-8.5); NEUTROPHILS % 66.8 % (36.0-66.0); PLATELET COUNT, AUTOMATED 103 10^3/uL (150-450); RED BLOOD COUNT 3.69 10^6/uL (4.30-6.10); WHITE BLOOD COUNT 4.8 10^3/uL (4.0-10.0)
[2023-03-24] MEDS ORDERED: MIDAZOLAM INJ 2MG/2ML VIAL IV ONE (05:35)
[2023-03-24] MEDS: diphenhydrAMINE 50MG/ML VIAL IM PRN ×3 (05:38→19:02)
[2023-03-24 05:55] LABS: BLOOD UREA NITROGEN < 5 MG/DL (9-23); CALCIUM LEVEL 7.6 MG/DL (8.5-10.1); CARBON DIOXIDE LEVEL 23 MMOL/L (20-31); CHLORIDE LEVEL 111 MMOL/L (98-107); CREATININE FOR GFR 0.67 MG/DL (0.70-1.30); GLOMERULAR FILTRATION RATE > 60.0 (>60); GLUCOSE, FASTING 88 MG/DL (60-100); POTASSIUM SERUM 3.4 MMOL/L (3.5-5.1); SODIUM LEVEL 145 MMOL/L (136-145)
[2023-03-24] MEDS ORDERED: NS 0.45% 1,000 ML IV ONE ×2 (06:00→06:15)
[2023-03-24] MEDS ORDERED: MIDAZOLAM INJ 2MG/2ML VIAL IV STA (06:03)
[2023-03-24] MEDS ORDERED: NS 500 ML IV ONE (06:05)
[2023-03-24] MEDS ORDERED: LORazepam 2 MG/ML 1ML VIAL IV STA (06:12)
[2023-03-24] MEDS: VANCOMYCIN HCL 1,000 MG, VIAL MATE ADAPTER 1 EACH in D5W 250 ML IV SCH ×2 (07:42→14:32)
[2023-03-24] MEDS ORDERED: LR 1,000 ML IV ONE ×2 (08:15→16:45)
[2023-03-24] MEDS: LR 1,000 ML IV SCH ×3 (08:41→21:05)
[2023-03-24] MEDS: THIAMINE 200MG 2ML VIAL IV SCH ×2 (08:43→09:02)
[2023-03-24] MEDS: PANTOPRAZOLE 40MG VIAL IV SCH (08:43)
[2023-03-24] MEDS ORDERED: HALOPERIDOL 5MG/ML 1ML VIAL IM SCH (09:00)
[2023-03-24] MEDS: FOLIC ACID 1 MG in NS 50 ML IV SCH (09:44)
[2023-03-24] MEDS: HALOPERIDOL 5MG/ML 1ML VIAL IM SCH ×2 (09:45→20:05)
[2023-03-24] MEDS ORDERED: dexAMETHasone 20MG/5ML VIAL IV ONE (15:00)
[2023-03-24 17:07] LABS: VITAMIN B12 LEVEL 614 PG/ML (211-911)
[2023-03-24] MEDS: NICOTINE 21MG/24HR 1 EA TRANSDERMAL TD SCH (17:37)
[2023-03-24] MEDS: VANCOMYCIN HCL 750 MG, VIAL MATE ADAPTER 1 EACH in D5W 250 ML IV SCH (22:35)
[2023-03-24] MEDS: VANCOMYCIN HCL 500 MG in D5W MINI-BAG PLUS 100 ML IV SCH (23:51)
[2023-03-25] VITALS (10 sets, daily range): BP systolic 102–139; BP diastolic 64–96; TEMP 97.6–98.6; O2SAT 94–98
[2023-03-25] MEDS: dexmedeTOMidine 200 MCG in IV 1 EA IV SCH ×3 (00:17→03:45)
[2023-03-25] MEDS: LR 1,000 ML IV SCH ×2 (01:58→08:57)
[2023-03-25] MEDS: PIPERACILLIN/TAZOBACTAM SOD 4.5 GM in D5W MINI-BAG PLUS 50 ML IV SCH ×2 (02:52→08:57)
[2023-03-25 05:16] LABS: BASO % 0.2 % (0.0-1.0); HEMATOCRIT 34.3 % (42.0-52.0); HEMOGLOBIN 11.8 g/dl (13.5-17.5); LYMPH # 0.7 10^3/uL (1.5-5.0); LYMPH % 16.6 % (24.0-44.0); MEAN CORPUSCULAR HGB CONC 34.4 g/dl (32.0-36.5); MEAN CORPUSCULAR VOLUME 98.8 fl (80.0-96.0); MONO # 0.8 10^3/uL (0.0-0.8); MONO % 17.5 % (2.0-8.0); NEUTROPHILS # 2.9 10^3/uL (1.5-8.5); NEUTROPHILS % 65.3 % (36.0-66.0); PLATELET COUNT, AUTOMATED 140 10^3/uL (150-450); RED BLOOD COUNT 3.47 10^6/uL (4.30-6.10); WHITE BLOOD COUNT 4.5 10^3/uL (4.0-10.0)
[2023-03-25 05:37] LABS: ALBUMIN 2.7 G/DL (3.2-5.2); ALKALINE PHOSPHATASE 50 U/L (46-116); ALT/SGPT 34 U/L (7.0-40); AST/SGOT 66 U/L (<34); BILIRUBIN,DIRECT 0.8 MG/DL (<0.4); BILIRUBIN,TOTAL 1.6 MG/DL (0.3-1.2); BLOOD UREA NITROGEN 5 MG/DL (9-23); CALCIUM LEVEL 8.5 MG/DL (8.5-10.1); CARBON DIOXIDE LEVEL 24 MMOL/L (20-31); CHLORIDE LEVEL 105 MMOL/L (98-107); CREATININE FOR GFR 0.63 MG/DL (0.70-1.30); GLOMERULAR FILTRATION RATE > 60.0 (>60); GLUCOSE, FASTING 127 MG/DL (60-100); MAGNESIUM LEVEL 1.2 MG/DL (1.8-2.4); PHOSPHORUS LEVEL 4.2 MG/DL (2.5-4.9); POTASSIUM SERUM 3.5 MMOL/L (3.5-5.1); SODIUM LEVEL 139 MMOL/L (136-145)
[2023-03-25] MEDS: VANCOMYCIN HCL 750 MG, VIAL MATE ADAPTER 1 EACH in D5W 250 ML IV SCH (06:15)
[2023-03-25] MEDS: MAG SULF 1GM/100ML (MAG RUN) 1 GM in IV 1 EA IV SCH ×4 (07:40→13:12)
[2023-03-25] MEDS: VANCOMYCIN HCL 500 MG in D5W MINI-BAG PLUS 100 ML IV SCH (07:40)
[2023-03-25] MEDS: NICOTINE 21MG/24HR 1 EA TRANSDERMAL TD SCH (08:56)
[2023-03-25] MEDS: THIAMINE 200MG 2ML VIAL IV SCH (08:58)
[2023-03-25] MEDS: PANTOPRAZOLE 40MG VIAL IV SCH (08:58)
[2023-03-25] MEDS: HALOPERIDOL 5MG/ML 1ML VIAL IM SCH (08:58)
[2023-03-25] MEDS: FOLIC ACID 1 MG in NS 50 ML IV SCH (12:05)
[2023-03-25] MEDS: ACETAMINOPHEN TAB 650MG DOSE (2X325MG) PO PRN (13:30)
[2023-03-25] MEDS ORDERED: MAG SULF 1GM/100ML (MAG RUN) 1 GM in IV 1 EA IV SCH (14:00)
[2023-03-25 15:15] LABS: CSF TUBE# TP TUBE 2; TOTAL PROTEIN,CSF 26.2 MG/DL (15-45)
[2023-03-25 15:18] LABS: CSF TUBE# GLU TUBE 2
[2023-03-25] MEDS: LINEZOLID 600 MG in IV 1 EA IV SCH (15:20)
[2023-03-25 15:29] LABS: APPEARANCE, CSF CLEAR (CLEAR); COLOR, CSF COLORLESS (COLORLESS); CSF TUBE# CELL CNT TUBE 1
[2023-03-25 15:34] LABS: APPEARANCE, CSF CLEAR (CLEAR); COLOR, CSF COLORLESS (COLORLESS); CSF TUBE# CELL CNT TUBE 4
[2023-03-25] MEDS ORDERED: SODIUM CHLORIDE 0.9% 1000ML IV ONE (16:40)
[2023-03-25 18:00] LABS: CLOSTRIDIUM DIFFICILE PCR NEGATIVE (NEGATIVE)
[2023-03-25] MEDS ORDERED: HALOPERIDOL 5MG/ML 1ML VIAL IM SCH (21:00)
[2023-03-26] MEDS: CEPACOL LOZENGE PO PRN ×2 (00:57→07:02)
[2023-03-26] MEDS: ACETAMINOPHEN TAB 650MG DOSE (2X325MG) PO PRN ×3 (00:57→12:23)
[2023-03-26] MEDS: LINEZOLID 600 MG in IV 1 EA IV SCH (01:00)
[2023-03-26] MEDS ORDERED: ISOVUE-370 76% 100ML VIAL As Ordered ONE (02:50)
[2023-03-26] MEDS: GASTROGRAFIN SOLUTION 30ML PO SCH ×2 (04:30→04:44)
[2023-03-26 04:33] VITALS: BP 133/83; TEMP 99.5; O2SAT 97
[2023-03-26 05:15] LABS: BASO % 0.4 % (0.0-1.0); EOS % 0.9 % (0.0-3.0); HEMATOCRIT 35.3 % (42.0-52.0); LYMPH # 1.5 10^3/uL (1.5-5.0); LYMPH % 31.1 % (24.0-44.0); MEAN CORPUSCULAR HEMOGLOBIN 34.7 pg (27.0-33.0); MONO # 0.9 10^3/uL (0.0-0.8); MONO % 18.9 % (2.0-8.0); NEUTROPHILS # 2.3 10^3/uL (1.5-8.5); NEUTROPHILS % 48.3 % (36.0-66.0); PLATELET COUNT, AUTOMATED 187 10^3/uL (150-450); RED BLOOD COUNT 3.46 10^6/uL (4.30-6.10); WHITE BLOOD COUNT 4.7 10^3/uL (4.0-10.0)
[2023-03-26 05:44] LABS: BLOOD UREA NITROGEN 9 MG/DL (9-23); CALCIUM LEVEL 8.3 MG/DL (8.5-10.1); CARBON DIOXIDE LEVEL 26 MMOL/L (20-31); CHLORIDE LEVEL 109 MMOL/L (98-107); CREATININE FOR GFR 0.96 MG/DL (0.70-1.30); GLOMERULAR FILTRATION RATE > 60.0 (>60); GLUCOSE, FASTING 82 MG/DL (60-100); POTASSIUM SERUM 3.7 MMOL/L (3.5-5.1); SODIUM LEVEL 144 MMOL/L (136-145)
[2023-03-26 08:00] VITALS: BP 133/84; TEMP 98.5; O2SAT 97
[2023-03-26] MEDS: THIAMINE 100 MG TAB PO SCH (08:09)
[2023-03-26] MEDS: NICOTINE 21MG/24HR 1 EA TRANSDERMAL TD SCH (08:09)
[2023-03-26] MEDS: FOLIC ACID 1MG TAB PO SCH (08:09)
[2023-03-26] MEDS: PANTOPRAZOLE 40MG VIAL IV SCH (08:10)
[2023-03-26 08:14] LABS: MAGNESIUM LEVEL 1.8 MG/DL (1.8-2.4)
[2023-03-26] MEDS ORDERED: OLANZapine INTRAMUSCULAR 10MG VIAL IM PRN (09:30)
[2023-03-26] MEDS: MAGNESIUM OXIDE 400MG TAB (MAG-OX) PO SCH (10:09)
[2023-03-26 14:17] VITALS: BP 142/99; TEMP 97.8; O2SAT 99
[2023-03-26 16:00] VITALS: BP 122/75
[2023-03-26] MEDS ORDERED: NS 1,000 ML IV ONE ×2 (16:15→16:30)
[2023-03-26] MEDS: LACTOBACILLUS ACIDOPHILUS CAP (BACID) PO SCH (17:51)
[2023-03-26 20:00] VITALS: BP 132/88; TEMP 98.8; O2SAT 99
[2023-03-26] MEDS ORDERED: LINEZOLID 600MG TABLET (ZYVOX) PO SCH (21:00)
[2023-03-27 04:00] VITALS: BP 121/76; TEMP 98.7; O2SAT 97
[2023-03-27 04:30] LABS: EOS # 0.1 10^3/uL (0.0-0.5); EOS % 1.6 % (0.0-3.0); HEMATOCRIT 33.9 % (42.0-52.0); HEMOGLOBIN 11.4 g/dl (13.5-17.5); LYMPH # 1.3 10^3/uL (1.5-5.0); LYMPH % 40.1 % (24.0-44.0); MEAN CORPUSCULAR HEMOGLOBIN 34.7 pg (27.0-33.0); MEAN CORPUSCULAR HGB CONC 33.6 g/dl (32.0-36.5); MONO # 0.6 10^3/uL (0.0-0.8); MONO % 18.9 % (2.0-8.0); NEUTROPHILS # 1.2 10^3/uL (1.5-8.5); NEUTROPHILS % 37.4 % (36.0-66.0); PLATELET COUNT, AUTOMATED 191 10^3/uL (150-450); RED BLOOD COUNT 3.29 10^6/uL (4.30-6.10); WHITE BLOOD COUNT 3.1 10^3/uL (4.0-10.0)
[2023-03-27 04:54] LABS: BLOOD UREA NITROGEN < 5 MG/DL (9-23); CALCIUM LEVEL 8.3 MG/DL (8.5-10.1); CARBON DIOXIDE LEVEL 25 MMOL/L (20-31); CHLORIDE LEVEL 110 MMOL/L (98-107); GLOMERULAR FILTRATION RATE > 60.0 (>60); GLUCOSE, FASTING 79 MG/DL (60-100); POTASSIUM SERUM 3.4 MMOL/L (3.5-5.1); SODIUM LEVEL 143 MMOL/L (136-145)
[2023-03-27] MEDS ORDERED: POTASSIUM CHLORIDE 10% LIQ 20MEQ/15ML UDC PO ONE (06:00)
[2023-03-27] MEDS ORDERED: RISATAB3 PO (07:16)
[2023-03-27] MEDS ORDERED: MAGN400T2 PO (07:16)
[2023-03-27] MEDS ORDERED: AMOX875T2 PO (07:16)
[2023-03-27 07:29] LABS: MAGNESIUM LEVEL 1.7 MG/DL (1.8-2.4)
[2023-03-27] MEDS: FOLIC ACID 1MG TAB PO SCH (08:16)
[2023-03-27] MEDS: THIAMINE 100 MG TAB PO SCH (08:16)
[2023-03-27] MEDS: LACTOBACILLUS ACIDOPHILUS CAP (BACID) PO SCH (08:16)
[2023-03-27] MEDS: MAGNESIUM OXIDE 400MG TAB (MAG-OX) PO SCH (08:16)
[2023-03-27] MEDS: ACETAMINOPHEN TAB 650MG DOSE (2X325MG) PO PRN (08:16)
[2023-03-27] MEDS: NICOTINE 21MG/24HR 1 EA TRANSDERMAL TD SCH (08:17)
[2023-03-27 08:31] VITALS: BP 138/90; TEMP 99.4; O2SAT 98
[2023-03-27] MEDS ORDERED: AUGMENTIN 875 MG TAB PO SCH (09:00)
== END 2023-03-27 10:36 | disposition home or self-care (01) | DRG 775 ==
LOC: M ED 15:30 → EDBD 15:30 → M ED INP 20:07 → ENRESERV 22:00 → M MS5PR 22:55 → M ICU 03-20 15:00
PROVIDERS: ADMIT Internal Medicine; ATTEND Internal Medicine Pulmonary Disease
PROC: 0BH17EZ Insertion of Endotracheal Airway into Trachea, Via Natural or Artificial Opening (ICD-10-PCS; principal; 2023-03-20)
PROC: 5A1945Z Respiratory Ventilation, 24-96 Consecutive Hours (ICD-10-PCS; 2023-03-20)
DX: F10.231 Alcohol dependence with withdrawal delirium (principal); J96.00 Acute respiratory failure, unspecified whether with hypoxia or hypercapnia; J69.0 Pneumonitis due to inhalation of food and vomit; D61.818 Other pancytopenia; D69.6 Thrombocytopenia, unspecified; E87.0 Hyperosmolality and hypernatremia; E83.42 Hypomagnesemia; F05 Delirium due to known physiological condition; G31.2 Degeneration of nervous system due to alcohol; Z78.1 Physical restraint status; K70.10 Alcoholic hepatitis without ascites; K76.0 Fatty (change of) liver, not elsewhere classified; E80.6 Other disorders of bilirubin metabolism; F17.210 Nicotine dependence, cigarettes, uncomplicated; R19.7 Diarrhea, unspecified; T36.95XA Adverse effect of unspecified systemic antibiotic, initial encounter; E87.6 Hypokalemia; I44.7 Left bundle-branch block, unspecified; E78.5 Hyperlipidemia, unspecified; Z86.718 Personal history of other venous thrombosis and embolism; Z79.899 Other long term (current) drug therapy; Z91.030 Bee allergy status; Z91.013 Allergy to seafood

== ENCOUNTER → 2023-07-31 | Outpatient (REF) | payer BC ==
[~2023-07-31] MED LIST changes: +AMOX875T2 PO; +ATOR1TAB19 PO; +EXCETAB32 PO; +FOLI1TAB11 PO; -LIDOCAINE 2% 100MG/5ML SDV (FOR ANES.) As Ordered ONE; +MAGN400T2 PO; -NS 1,000 ML IV ONE; +RISATAB3 PO; +THIA100TA PO; +VITMTA PO; -propofoL 200 MG/20 ML VIAL As Ordered ONE
[2023-07-31 17:13] LABS: ALBUMIN 4.1 G/DL (3.2-5.2); ALKALINE PHOSPHATASE 66 U/L (46-116); ALT/SGPT 80 U/L (7.0-40); AST/SGOT 203 U/L (<34); BILIRUBIN,TOTAL 1.6 MG/DL (0.3-1.2); BLOOD UREA NITROGEN 6 MG/DL (9-23); CARBON DIOXIDE LEVEL 26 MMOL/L (20-31); CHLORIDE LEVEL 103 MMOL/L (98-107); CHOLESTEROL LEVEL 309 MG/DL (<200); CHOLESTEROL RISK RATIO 3.05 (<5); GLOMERULAR FILTRATION RATE > 60.0 (>60); GLUCOSE, FASTING 70 MG/DL (60-100); LDL CHOLESTEROL 186.4 MG/DL (<100); POTASSIUM SERUM 4.3 MMOL/L (3.5-5.1); SODIUM LEVEL 140 MMOL/L (136-145); TOTAL PROTEIN 7.6 G/DL (5.7-8.2); TRIGLYCERIDES LEVEL 108 MG/DL (<150)
[2023-07-31 17:15] LABS: FREE T4 1.17 NG/DL (0.89-1.76); THYROID STIMULATING HORMONE 1.216 uIU/ML (0.55-4.78)
[2023-07-31 17:20] LABS: BASO % 1.3 % (0.0-1.0); EOS % 1.7 % (0.0-3.0); HEMATOCRIT 42.9 % (42.0-52.0); HEMOGLOBIN 14.1 g/dl (13.5-17.5); LYMPH # 1.2 10^3/uL (1.5-5.0); MEAN CORPUSCULAR HEMOGLOBIN 35.1 pg (27.0-33.0); MEAN CORPUSCULAR HGB CONC 32.9 g/dl (32.0-36.5); MEAN CORPUSCULAR VOLUME 106.7 fl (80.0-96.0); MONO # 0.2 10^3/uL (0.0-0.8); MONO % 7.9 % (2.0-8.0); NEUTROPHILS % 39.7 % (36.0-66.0); RED BLOOD COUNT 4.02 10^6/uL (4.30-6.10); WHITE BLOOD COUNT 2.4 10^3/uL (4.0-10.0)
[2023-07-31 17:38] LABS: ERYTHROCYTE SEDIMENTATION RATE 36 mm/hr (0-15)
[2023-07-31 18:16] LABS: PLATELET COUNT, AUTOMATED 47 10^3/uL (150-450)
== END ==
LOC: M LAB REF 10:17
PROVIDERS: ATTEND Physician Assistant Medical
DX: R53.83 Other fatigue (principal); M79.10 Myalgia, unspecified site; D61.818 Other pancytopenia; E78.2 Mixed hyperlipidemia

== ENCOUNTER 2023-09-04 11:11 | Emergency (ER) | payer BC ==
[~2023-09-04] VITALS: Ht 182.9 cm; Wt 77.3 kg
[2023-09-04] MEDS ORDERED: LEVE500T5 (11:18)
[2023-09-04 12:33] LABS: HEMOGLOBIN 14.2 g/dl (13.5-17.5); MEAN CORPUSCULAR HEMOGLOBIN 34.5 pg (27.0-33.0); MEAN CORPUSCULAR VOLUME 104.4 fl (80.0-96.0); PLATELET COUNT, AUTOMATED 151 10^3/uL (150-450); RED BLOOD COUNT 4.12 10^6/uL (4.30-6.10); WHITE BLOOD COUNT 6.4 10^3/uL (4.0-10.0)
[2023-09-04 12:57] LABS: ETHYL ALCOHOL (ETHANOL) 0.173 % (0.000-0.010); SALICYLATE LEVEL < 3.0 MG/DL (<30)
[2023-09-04 12:58] LABS: ALBUMIN 3.8 G/DL (3.2-5.2); ALKALINE PHOSPHATASE 67 U/L (46-116); ALT/SGPT 29 U/L (7.0-40); AST/SGOT 46 U/L (<34); BILIRUBIN,DIRECT 0.2 MG/DL (<0.4); BILIRUBIN,TOTAL 0.7 MG/DL (0.3-1.2); BLOOD UREA NITROGEN 6 MG/DL (9-23); CALCIUM LEVEL 8.9 MG/DL (8.5-10.1); CARBON DIOXIDE LEVEL 29 MMOL/L (20-31); CHLORIDE LEVEL 105 MMOL/L (98-107); CREATININE FOR GFR 0.74 MG/DL (0.70-1.30); GLOMERULAR FILTRATION RATE > 60.0 (>60); GLUCOSE, FASTING 76 MG/DL (60-100); POTASSIUM SERUM 4.7 MMOL/L (3.5-5.1); SODIUM LEVEL 139 MMOL/L (136-145); TOTAL PROTEIN 7.2 G/DL (5.7-8.2)
[2023-09-04 13:01] LABS: THYROID STIMULATING HORMONE 0.987 uIU/ML (0.55-4.78)
[2023-09-04 13:46] LABS: AMPHETAMINES LEVEL URINE NEGATIVE (NEGATIVE); BARBITURATES URINE NEGATIVE (NEGATIVE); BENZODIAZEPINES URINE NEGATIVE (NEGATIVE); CANNABINOIDS URINE NEGATIVE (NEGATIVE); COCAINE METABOLITE URINE NEGATIVE (NEGATIVE); METHADONE URINE NEGATIVE (NEGATIVE); OPIATES URINE NEGATIVE (NEGATIVE); PHENCYCLIDINE URINE NEGATIVE (NEGATIVE)
[2023-09-04 17:29] VITALS: BP 122/81; TEMP 98.4; O2SAT 99
== END 2023-09-04 17:44 | disposition home or self-care (01) ==
LOC: M ED 11:11
DX: Z13.39 Encounter for screening examination for other mental health and behavioral disorders (principal); E78.5 Hyperlipidemia, unspecified; F10.120 Alcohol abuse with intoxication, uncomplicated; Z91.013 Allergy to seafood; Z91.030 Bee allergy status; Z79.899 Other long term (current) drug therapy; Z79.1 Long term (current) use of non-steroidal anti-inflammatories (NSAID)